=== PATIENT | female | born 2000 ===

== ENCOUNTER 2022-12-16 10:54 | Emergency (ER) | payer BC ==
[2022-12-16 11:15] VITALS: RESP 18
[2022-12-16] MEDS ORDERED: SODIUM CHLORIDE 0.9% 1,000 ML IV STA (11:57)
--- NOTE | 2022-12-16 12:41 | XR ---
EXAMINATION TYPE: XR chest 1V portable DATE OF EXAM: 12/16/2022 12:23 PM COMPARISON: None TECHNIQUE: XR chest 1V portable Portable AP radiograph of the chest. CLINICAL INDICATION:Female, 22 years old with history of chest wall pain; FINDINGS: Lungs/Pleura: There is no evidence of pleural effusion, focal consolidation, or pneumothorax. Pulmonary vascularity: Unremarkable. Heart/mediastinum: Cardiomediastinal silhouette is unremarkable. Musculoskeletal: No acute osseous pathology. IMPRESSION: No acute cardiopulmonary disease/process.
[2022-12-16 12:52] LABS: Basophils % (A) 0 %; Eosinophils # (A) 0.2 k/uL (0-0.7); Eosinophils % (A) 1 %; HCT 37.3 % (34.0-46.0); HGB 12.6 gm/dL (11.4-16.0); Lymphocytes # (A) 1.2 k/uL (1.0-4.8); Lymphocytes % (A) 9 %; MCH 29.5 pg (25.0-35.0); MCHC 33.8 g/dL (31.0-37.0); MCV 87.2 fL (80.0-100.0); Mean Platelet Volume 8.2; Monocytes # (A) 0.7 k/uL (0-1.0); Monocytes % (A) 5 %; Neutrophils # (A) 10.9 k/uL (1.3-7.7); Neutrophils % (A) 84 %; Platelet Count 300 k/uL (150-450); RBC 4.27 m/uL (3.80-5.40); RDW 13.1 % (11.5-15.5); WBC 13.1 k/uL (3.8-10.6)
[2022-12-16 13:50] LABS: African American GFR (CKD) >90 (>60 ml/min/1.73 sqM); Anion Gap 5 mmol/L; Blood Urea Nitrogen 8 mg/dL (7-17); Carbon Dioxide 24 mmol/L (22-30); Chloride 107 mmol/L (98-107); Glucose 82 mg/dL (74-99); Non-African American GFR(CKD) >90 (>60 ml/min/1.73 sqM); Potassium 4.8 mmol/L (3.5-5.1); Sodium 136 mmol/L (137-145)
--- NOTE | 2022-12-16 14:44 | ED ---
General Adult HPI - General Chief complaint: Chest Pain Stated complaint: Chest Pain/Ear Pressure/Headache 16 wks Time Seen by Provider: 12/16/22 11:45 Source: patient, family, RN notes reviewed, old records reviewed Mode of arrival: ambulatory Limitations: language barrier - History of Present Illness Initial comments: Patient is a 22-year-old female who presents emergency Department complaining of chest discomfort, as well as a headache and an ear fullness sensation. Patient is approximately 14-16 weeks . States the chest pain began suddenly while she was lifting heavy objects at work. Patient is Danish-speaking and is using a family member for translation. States the pain is located along her upper sternum and is palpable and worse with movements of her arms. Denies any shortness of breath. Denies any lightheadedness. Endorses a mild headache as well as ear fullness. No sore throat or rhinorrhea. No nausea, vomiting. No abdominal pain. No vaginal bleeding. Is due to follow-up with her EXPLOSIVES ENGINEER tomorrow. His no other acute complaints at this time. Has been taking vitamins. Denies any trauma. Presents for further evaluation. - Related Data Home Medications Medication Instructions Recorded Confirmed No Known Home Medications 12/16/22 12/16/22 Allergies Allergy/AdvReac Type Severity Reaction Status Date / Time No Known Allergies Allergy Verified 12/16/22 12:10 Review of Systems ROS Statement: Those systems with pertinent positive or pertinent negative responses have been documented in the HPI. Review of Systems: CONST: Denies fever EYES: Denies blurry vision ENT: Denies nasal congestion C/V: Endorses chest wall pain RESP: Denies shortness of breath GI: Denies abdominal pain : Denies dysuria SKIN: Denies rash. MSK: Denies joint pain. NEURO: Endorses mild headache ROS Other: All systems not noted in ROS Statement are negative. Past Medical History Past Medical History: No Reported History History of Any Multi-Drug Resistant Organisms: None Reported Past Surgical History: No Surgical Hx Reported Past Psychological History: No Psychological Hx Reported Smoking Status: Never smoker Past Alcohol Use History: None Reported Past Drug Use History: None Reported General Exam - General Exam Comments Initial Comments: General: Appears in no acute distress. HEAD: Normal with no signs of head trauma. EYES: PERRLA, EOMI, conjunctiva normal, no discharge. Pupils are 3 mm and equal bilaterally. ENT: Hearing grossly intact, normal oropharynx. RESPIRATORY: Clear breath sounds bilaterally. No wheezes, rales, or rhonchi. C/V: Regular rate and rhythm. S1 and S2 auscultated, no edema, peripheral pulses 2+ and intact throughout ABD: Abd is soft, nontender, nondistended EXT: Normal range of motion, no obvious deformity. Chest pain reproducible on the superior third of the sternum. Appears to be chest wall pain and musculoskeletal in nature. Worse with movement of the arms. SKIN: No rashes or lesions observed on exposed skin. NEURO: Alert and oriented 4. Limitations: language barrier Course Vital Signs 12/16/22 12/16/22 11:08 14:44 Temperature 98.2 F 98.5 F Pulse Rate 94 88 Respiratory 18 18 Rate Blood Pressure 122/76 105/66 O2 Sat by Pulse 99 100 Oximetry Medical Decision Making - Medical Decision Making Was pt. sent in by a medical professional or institution (, PA, SECRETARY TO BOARD OF COMMISSIONERS, urgent care, hospital, or [facility]...) When possible be specific @ -No Did you speak to anyone other than the patient for history (EMS, parent, family, police, friend...)? What history was obtained from this source @ -Used family member for translation at patient's request. Did you review nursing and triage notes (agree or disagree)? Why? @ -I reviewed and agree with nursing and triage notes Were old charts reviewed (outside hosp., previous admission, EMS record, old EKG, old radiological studies, urgent care reports/EKG's, [facility] records)? Report findings @ -No old charts were reviewed Differential Diagnosis (chest pain, altered mental status, abdominal pain women, abdominal pain men, vaginal bleeding, weakness, fever, dyspnea, syncope, headache, dizziness, GI bleed, back pain, seizure, CVA, palpatations, mental health, musculoskeletal)? @ -Chest wall pain, muscle strain, viral syndrome, dehydration. This list is not all inclusive. EKG interpreted by me (3pts min.). @ -As above X-rays interpreted by me (1pt min.). @ -Chest x-ray reveals no obvious acute cardio pulmonary process, infiltrate. CT interpreted by me (1pt min.). @ -None done U/S interpreted by me (1pt. min.). @ -None done What testing was considered but not performed or refused? (CT, X-rays, U/S, labs)? Why? @ -None What meds were considered but not given or refused? Why? @ -None Did you discuss the management of the patient with other professionals (professionals i.e. , PA, SECRETARY TO BOARD OF COMMISSIONERS, lab, RT, psych nurse, social work coordinator, copy writer, teacher, corporate responsibility officer, vocational case manager)? Give summary @ -No Was smoking cessation discussed for >3mins.? @ -No Was critical care preformed (if so, how long)? @ -No Were there social determinants of health that impacted care today? How? (Homelessness, low income, unemployed, alcoholism, drug addiction, transportation, low edu. Level, literacy, decrease access to med. care, intermediate, rehab)? @ -No Was there de-escalation of care discussed even if they declined (Discuss DNR or withdrawal of care, Hospice)? DNR status @ -No What co-morbidities impacted this encounter? (DM, HTN, Smoking, COPD, CAD, Cancer, CVA, ARF, Chemo, Hep., AIDS, mental health diagnosis, sleep apnea, morbid obesity)? @ -None Was patient admitted / discharged? Hospital course, mention meds given and route, prescriptions, significant lab abnormalities, going to OR and other pertinent info. @ -Based on the patient's presentation and physical exam, patient presents with chest wall pain. Patient also has a nonspecific headache at this time. We will obtain basic labs. She is approximately 16 weeks . Vital signs within acceptable limits. No other acute complaints at this time. She will symptomatically be treated with Tylenol as well as a 1 L fluid bolus. Patient's labs are remarkable for a likely reactive leukocytosis of 13. Remainder of the labs are unremarkable including a negative viral swabs. Chest x-ray unremarkable. EKG within acceptable limits. No evidence of acute ischemia. On reevaluation, patient's symptoms have resolved. She feels improved. We did discuss her workup as well as her diagnosis of chest wall strain. She was in agreement with this plan. She'll be discharged home at this time. She has a EXPLOSIVES ENGINEER tomorrow. Strict return precautions discussed. She can use [id number] analgesic medications for pain. She is expressed understanding and I answered all questions that she had. I instructed the patient to follow up with their PCP in the next 1-3 days. I explained that the patient should return to the emergency department if they experience any worsening symptoms. Strict return precautions were discussed with the patient. The patient expressed understanding of these instructions. I answered all questions that the patient had. The patient was discharged home in good condition with their prescriptions and follow up information. Undiagnosed new problem with uncertain prognosis? @ -No Drug Therapy requiring intensive monitoring for toxicity (Heparin, Nitro, Insulin, Cardizem)? @ -No Were any procedures done? @ -No Diagnosis/symptom? @ -Chest wall pain, muscle strain Acute, or Chronic, or Acute on Chronic? @ -Acute Uncomplicated (without systemic symptoms) or Complicated (systemic symptoms)? @ -Uncomplicated Side effects of treatment? @ -No Exacerbation, Progression, or Severe Exacerbation? @ -No Poses a threat to life or bodily function? How? (Chest pain, USA, IA, pneumonia, PE, COPD, DKA, ARF, appy, cholecystitis, CVA, Diverticulitis, Homicidal, Suicidal, threat to staff... and all critical care pts) @ -No Diagnosis/symptom? @ - Acute, or Chronic, or Acute on Chronic? @ -Acute Uncomplicated (without systemic symptoms) or Complicated (systemic symptoms)? @ -Uncomplicated Side effects of treatment? @ -none Exacerbation, Progression, or Severe Exacerbation] @ -no Poses a threat to life or bodily function? @ -no - Lab Data Result diagrams: 12/16/22 12:43 12/16/22 13:08 Lab Results 12/16/22 12/16/22 12/16/22 Range/Units 12:43 12:43 13:08 WBC 13.1 H (3.8-10.6) k/uL RBC 4.27 (3.80-5.40) m/uL Hgb 12.6 (11.4-16.0) gm/dL Hct 37.3 (34.0-46.0) % MCV 87.2 (80.0-100.0) fL MCH 29.5 (25.0-35.0) pg MCHC 33.8 (31.0-37.0) g/dL RDW 13.1 (11.5-15.5) % Plt Count 300 (150-450) k/uL MPV 8.2 Neutrophils % 84 % Lymphocytes % 9 % Monocytes % 5 % Eosinophils % 1 % Basophils % 0 % Neutrophils # 10.9 H (1.3-7.7) k/uL Lymphocytes # 1.2 (1.0-4.8) k/uL Monocytes # 0.7 (0-1.0) k/uL Eosinophils # 0.2 (0-0.7) k/uL Basophils # 0.0 (0-0.2) k/uL Sodium 136 L (137-145) mmol/L Potassium 4.8 (3.5-5.1) mmol/L Chloride 107 (98-107) mmol/L Carbon Dioxide 24 (22-30) mmol/L Anion Gap 5 mmol/L BUN 8 (7-17) mg/dL Creatinine 0.46 L (0.52-1.04) mg/dL Est GFR (CKD-EPI)AfAm >90 (>60 ml/min/1.73 sqM) Est GFR (CKD-EPI)NonAf >90 (>60 ml/min/1.73 sqM) Glucose 82 (74-99) mg/dL Calcium 8.0 L (8.4-10.2) mg/dL Influenza Type A (PCR) Not Detected (Not Detectd) Influenza Type B (PCR) Not Detected (Not Detectd) RSV (PCR) Not Detected (Not Detectd) SARS-CoV-2 (PCR) Not Detected (Not Detectd) - EKG Data -: EKG Interpreted by Me EKG Comments: 12-lead Electrocardiogram Interpretation Note EKG was reviewed and interpreted by myself. 12-lead ECG performed at 1123 is interpreted by me as revealing normal sinus rhythm at a rate of 94 beats per minute. Early Branch is normal. W[place] interval is 104 ms, QRS duration is 84 ms, QTc is 396 ms. Patient has an isolated T-wave inversion in lead III with no reciprocal changes. There were no acute ST or T wave abnormalities to suggest myocardial ischemia or injury. R wave progression across the precordium was satisfactory. By my interpretation this EKG is non-diagnostic for acute ischemia. Disposition Clinical Impression: Chest wall pain, Muscle strain, Headache Disposition: HOME SELF-CARE Condition: Good Instructions (If sedation given, give patient instructions): Muscle Strain (ED) Is patient prescribed a controlled substance at d/c from ED?: No Referrals: Liz Owens DO [Primary Care Provider] - 1-2 days Time of Disposition: 14:32
[2022-12-16 14:49] VITALS: BP 105/66; PULSE 88; TEMP 98.5
== END 2022-12-16 14:50 | disposition home or self-care (01) ==
LOC: EC 10:54
DX: O26.892 Other specified pregnancy related conditions, second trimester (principal); S29.011A Strain of muscle and tendon of front wall of thorax, initial encounter; R51.9 Headache, unspecified; Z20.822 Contact with and (suspected) exposure to COVID-19; Z3A.16 16 weeks gestation of pregnancy; X58.XXXA Exposure to other specified factors, initial encounter
CPT/HCPCS: 36415; 71045; 80048; 85025; 87636; 93005; 96360; 99285

== ENCOUNTER 2023-05-15 15:37 | Inpatient (IN) | payer BC ==
[2023-05-15] MEDS ORDERED: DINOPROSTONE 10 MG INSERT.ER VAGINAL ONE (15:55)
[2023-05-16] MEDS: LACTATED RINGERS 1,000 ML IV SCH ×3 (01:05→20:11)
[2023-05-16] MEDS ORDERED: OXYTOCIN 10 UNIT/ML 1 ML VIAL IM PRN (01:10)
[2023-05-16] MEDS ORDERED: miSOPROStoL 200 MCG TAB PO PRN (01:10)
[2023-05-16] MEDS ORDERED: CARBOPROST TROMETHAMINE 250 MCG/ML 1 ML AMP IM PRN (01:10)
[2023-05-16] MEDS ORDERED: TERBUTALINE 1 MG/ML VIAL SQ PRN (01:10)
[2023-05-16] MEDS ORDERED: LIDOCAINE 0.5% (PF) 5 MG/ML (50 ML SDV) SQ PRN (01:10)
[2023-05-16] MEDS ORDERED: TRANEXAMIC 1,000 MG/100ML-NACL 1,000 MG in EMPTY BAG 1 BAG IV PRN (01:10)
[2023-05-16] MEDS ORDERED: METHYLERGONOVINE 0.2 MG/ML 1 ML AMP IM PRN (01:10)
[2023-05-16] MEDS ORDERED: NALBUPHINE 10 MG/ML (10 ML MDV) IV PRN (01:11)
[2023-05-16] MEDS ORDERED: OXYTOCIN 30 UNITS/500 ML NS 30 UNIT in SALINE 1 500ML.BAG IV SCH ×2 (01:15→06:45)
[2023-05-16 01:24] LABS: Anisocytosis Slight; Basophils % (A) 0 %; Eosinophils # (A) 0.1 k/uL (0-0.7); Eosinophils % (A) 1 %; HCT 37.8 % (34.0-46.0); HGB 12.4 gm/dL (11.4-16.0); Lymphocytes # (A) 1.8 k/uL (1.0-4.8); Lymphocytes % (A) 13 %; MCH 25.4 pg (25.0-35.0); MCHC 32.8 g/dL (31.0-37.0); MCV 77.4 fL (80.0-100.0); Mean Platelet Volume 8.1; Microcytosis Slight; Monocytes # (A) 0.6 k/uL (0-1.0); Monocytes % (A) 4 %; Neutrophils # (A) 11.3 k/uL (1.3-7.7); Neutrophils % (A) 81 %; Platelet Count 338 k/uL (150-450); RBC 4.88 m/uL (3.80-5.40); RDW 16.1 % (11.5-15.5)
[2023-05-16] MEDS ORDERED: diphenhydrAMINE 25 MG CAP PO PRN (06:38)
[2023-05-16] MEDS ORDERED: diphenhydrAMINE 50 MG/ML 1 ML VIAL IVP PRN ×2 (06:38)
[2023-05-16] MEDS ORDERED: BENZOCAINE/MENTHOL SPRAY 1 GM/SPRAY AEROSOL TOPICAL PRN (06:38)
[2023-05-16] MEDS ORDERED: LANOLIN CREAM 5 GM TUBE TOPICAL PRN (06:38)
[2023-05-16] MEDS ORDERED: HYDROCORTISONE 2.5% RECTAL CREAM 30 GM TUBE RECTAL PRN (06:38)
[2023-05-16] MEDS ORDERED: ZOLPIDEM 5 MG TAB PO PRN (06:38)
[2023-05-16] MEDS ORDERED: ACETAMINOPHEN TAB 325 MG TAB PO PRN (06:38)
[2023-05-16] MEDS ORDERED: SIMETHICONE 80 MG CHEWABLE PO PRN (06:38)
[2023-05-16] MEDS ORDERED: diphenhydrAMINE 50 MG CAP PO PRN (06:38)
[2023-05-16] MEDS ORDERED: IBUPROFEN 600 MG TAB PO PRN (06:38)
--- NOTE | 2023-05-16 06:42 | P.HPOB ---
History of Present Illness H&P Date: 05/15/23 Chief Complaint: induction of labor, GDM 22 year old presents at 39 weeks 4 days for induction of labor due to gestational diabetes. Her cervix is closed, 50, -2 and she is tania irregularly. heart tones 140 with moderate variability and reactive. Review of Systems All systems: negative Constitutional: Denies chills, Denies fever Eyes: denies blurred vision, denies pain Ears, nose, mouth and throat: Denies headache, Denies sore throat Cardiovascular: Denies chest pain, Denies shortness of breath Respiratory: Denies cough Gastrointestinal: Denies abdominal pain, Denies diarrhea, Denies nausea, Denies vomiting Genitourinary: Denies dysuria, Denies hematuria Musculoskeletal: Denies myalgias Integumentary: Denies pruritus, Denies rash Neurological: Denies numbness, Denies weakness Psychiatric: Denies anxiety, Denies depression Endocrine: Denies fatigue, Denies weight change Past Medical History Past Medical History: No Reported History History of Any Multi-Drug Resistant Organisms: None Reported Past Surgical History: No Surgical Hx Reported Past Anesthesia/Blood Transfusion Reactions: No Reported Reaction Past Psychological History: No Psychological Hx Reported Smoking Status: Never smoker Past Alcohol Use History: None Reported Past Drug Use History: None Reported - Past Family History Mother History Unknown: Yes Medications and Allergies Home Medications Medication Instructions Recorded Confirmed Type No Known Home Medications 12/16/22 05/15/23 History Allergies Allergy/AdvReac Type Severity Reaction Status Date / Time No Known Allergies Allergy Verified 12/16/22 12:10 Exam Osteopathic Statement: *. No significant issues noted on an osteopathic structural exam other than those noted in the History and Physical/Consult. Vital Signs Temp Pulse Resp BP Pulse Ox 05/16/23 06:11 130 H 18 140/91 05/15/23 15:53 98.0 F 91 18 141/90 98 Intake and Output 05/15/23 05/15/23 05/16/23 14:59 22:59 06:59 Intake Total 162 Balance 162 Intake: Intake, IV Titration 162 Amount Oxytocin 30 Units/500 ml 162 Ns 30 unit In Saline 1 500ml.bag @ Per Protocol IV .Q0M OLMAN Rx#:[id number] Other: # Voids 3 Weight 74.843 kg Heart: Regular rate and rhythm Lungs: Clear to auscultation bilaterally Abdomen: Soft, nontender Extremities: Negative Homans sign Results Result Diagrams: 05/16/23 01:00 Abnormal Lab Results - Last 24 Hours (Table) 05/16/23 Range/Units 01:00 WBC 14.0 H (3.8-10.6) k/uL MCV 77.4 L (80.0-100.0) fL RDW 16.1 H (11.5-15.5) % Neutrophils # 11.3 H (1.3-7.7) k/uL Assessment and Plan (1) 39 weeks gestation of Current Visit: Yes Status: Acute Code(s): Z3A.39 - 39 WEEKS GESTATION OF SNOMED Code(s): 27115565 (2) Gestational diabetes Current Visit: Yes Status: Acute Code(s): O24.419 - GESTATIONAL DIABETES MELLITUS IN , UNSP CONTROL SNOMED Code(s): 59672057 Plan: 1. induction of labor with cervidil and then amniotomy and pitocin.
--- NOTE | 2023-05-16 06:44 | P.PROBDLV ---
Vaginal Delivery Note - . Vaginal Delivery Note: 22 year old presents at 39 weeks 4 days for induction of labor due to gestational diabetes. Her cervix is closed, 50, -2 and she is tania irregularly. heart tones 140 with moderate variability and reactive. Cervidil was placed and patient became uncomfortable overnight. Cervidil was removed when her cervix changed from fingertip to 8 cm between 1 in the morning and 4 in the morning. Her cervix was completely dilated at 5:18 AM. She pushed, delivered a viable male infant over intact perineum. Head delivered OA, nuchal cord 1 easily reduced, anterior shoulder delivered gentle downward guidance followed by posterior shoulder and rest of body. Nose and mouth bulb suctioned, cord clamped and cut, infant placed on mother's abdomen. Apgars 8, 9, weight 7 lbs. 14 oz. Placenta delivered spontaneously, intact with three- vessel cord at 6 AM. Vagina, cervix, perineum inspected. A 5 cm fourth degree laceration was repaired with 4-0 Vicryl 3-0 Vicryl and 2-0 Vicryl. Estimated blood loss 250 mL mother and baby in stable condition.
[2023-05-16] MEDS: SENNOSIDES-DOCUSATE SODIUM 1 EACH TAB PO SCH ×2 (09:29→20:08)
--- NOTE | 2023-05-17 07:16 | P.DS ---
Providers Date of admission: 05/15/23 15:37 Expected date of discharge: 05/17/23 Attending physician: Liz Owens Primary care physician: Stated None - Discharge Diagnosis(es) (1) 39 weeks gestation of Current Visit: Yes Status: Resolved (2) Gestational diabetes Current Visit: Yes Status: Resolved (3) Normal vaginal delivery Current Visit: Yes Status: Acute (4) Fourth degree laceration of perineum, delivered, current hospitalization Current Visit: Yes Status: Acute Hospital Course: Patient presented for induction of labor. Cervidil was placed and patient delivered just using this. course was uncomplicated. She denies nausea, vomiting, chest pain, short of breath or calf pain. Patient will be discharged home day #1 in stable condition to follow-up with me in 6 weeks. Plan - Discharge Summary New Discharge Prescriptions: New Ibuprofen [Motrin] 600 mg PO Q6HR PRN #30 tab PRN Reason: Mild Pain (Scale 1 To 3) Discharge Medication List Ibuprofen [Motrin] 600 mg PO Q6HR PRN #30 tab 05/17/23 [Rx] Follow up Appointment(s)/Referral(s): Liz Owens DO [Doctor of Osteopathic Medicine] - 07/05/23 10:45 am Discharge Disposition: HOME SELF-CARE
[2023-05-17 08:15] LABS: Anisocytosis Slight; Basophils % (A) 0 %; Eosinophils % (A) 0 %; HCT 28.7 % (34.0-46.0); Lymphocytes # (A) 2.3 k/uL (1.0-4.8); Lymphocytes % (A) 15 %; MCH 25.9 pg (25.0-35.0); MCHC 33.1 g/dL (31.0-37.0); MCV 78.2 fL (80.0-100.0); Mean Platelet Volume 8.1; Microcytosis Slight; Monocytes # (A) 0.5 k/uL (0-1.0); Monocytes % (A) 3 %; Neutrophils # (A) 11.7 k/uL (1.3-7.7); Neutrophils % (A) 80 %; Platelet Count 321 k/uL (150-450); RBC 3.67 m/uL (3.80-5.40); RDW 16.8 % (11.5-15.5); WBC 14.8 k/uL (3.8-10.6)
[2023-05-17 08:17] LABS: HGB 9.5 gm/dL (11.4-16.0)
[2023-05-17 08:53] VITALS: BP 125/79; PULSE 96; RESP 16; TEMP 98.4
== END 2023-05-17 12:45 | disposition home or self-care (01) | DRG 768 ==
LOC: 4FBP 15:37
PROVIDERS: ADMIT Obstetrics & Gynecology; ATTEND Obstetrics & Gynecology
PROC: 10E0XZZ Delivery of Products of Conception, External Approach (ICD-10-PCS; principal; 2023-05-16)
PROC: 0DQP0ZZ Repair Rectum, Open Approach (ICD-10-PCS; 2023-05-16)
PROC: 3E0P7VZ Introduction of Hormone into Female Reproductive, Via Natural or Artificial Opening (ICD-10-PCS; 2023-05-16)
DX: O24.429 Gestational diabetes mellitus in childbirth, unspecified control (principal); Z37.0 Single live birth; O70.3 Fourth degree perineal laceration during delivery; Z3A.39 39 weeks gestation of pregnancy; Z28.310 Unvaccinated for COVID-19
CPT/HCPCS: 85025; 86850; 86900; 86901

== ENCOUNTER 2023-08-05 16:28 | Emergency (ER) | payer BC ==
[2023-08-05 17:26] VITALS: PULSE 79
[2023-08-05 18:48] LABS: Appearance,Urine Clear (Clear); Bilirubin,Urine Negative (Negative); Blood,Urine Trace (Negative); Color,Urine Yellow; Glucose,Urine (UA) Negative (Negative); Ketones,Urine Negative (Negative); Leukocyte Esterase,Urine Large (Negative); Mucus,Urine Few /hpf; Nitrite,Urine Negative (Negative); PH, Urine 5.5 (5.0-8.0); Protein,Urine Trace (Negative); RBC,Urine 12 /hpf (0-5); Specific Gravity,Urine 1.033 (1.001-1.035); Squamous Epithelial Cell,Urine 1 /hpf (0-4); Urobilinogen,Urine <2.0 mg/dL (<2.0); WBC,Urine 55 /hpf (0-5)
--- NOTE | 2023-08-05 18:59 | ED ---
Abdominal Pain HPI - General Chief Complaint: Abdominal Pain Stated Complaint: abd pain, vomitting- sent from urgent care Time Seen by Provider: 08/05/23 18:22 Source: patient, RN notes reviewed, old records reviewed Mode of arrival: ambulatory Limitations: no limitations - History of Present Illness Initial Comments: This is a 22-year-old female to the ER for evaluation today. Patient presents with urgent care for evaluation regarding abdominal pain abdominal pain with active nausea vomiting. Patient has no recent fevers but is still complaining of abdominal pain here in the ER, epigastric abdominal pain with suprapubic abdominal pain. No recent travel history or sick contacts. No heart prior surgical history and denies chance of MD Complaint: abdominal pain -: days(s) Location: RUQ, suprapubic Radiation: RUQ, suprapubic Migration to: suprapubic Severity: moderate Severity scale (1-10): 6 Quality: fullness, sharp Improves With: nothing Worsens With: nothing Associated Symptoms: nausea, vomiting Treatments Prior to Arrival: other (0) - Related Data Previous Rx's Medication Instructions Recorded Ibuprofen [Motrin] 600 mg PO Q6HR PRN #30 tab 05/17/23 Amoxic-Pot Clav 875-125Mg 1 tab PO Q12HR #20 tablet 08/05/23 [Augmentin 875-125] Allergies Allergy/AdvReac Type Severity Reaction Status Date / Time No Known Allergies Allergy Verified 08/05/23 17:02 Review of Systems ROS Statement: Those systems with pertinent positive or pertinent negative responses have been documented in the HPI. ROS Other: All systems not noted in ROS Statement are negative. Past Medical History Past Medical History: No Reported History Additional Past Medical History / Comment(s): hepatitis History of Any Multi-Drug Resistant Organisms: None Reported Past Surgical History: No Surgical Hx Reported Past Anesthesia/Blood Transfusion Reactions: No Reported Reaction Past Psychological History: No Psychological Hx Reported Smoking Status: Never smoker Past Alcohol Use History: None Reported Past Drug Use History: None Reported - Past Family History Mother History Unknown: Yes General Exam Limitations: no limitations General appearance: alert, in no apparent distress Head exam: Present: atraumatic, normocephalic, normal inspection Eye exam: Present: normal appearance, PERRL, EOMI. Absent: scleral icterus, conjunctival injection, periorbital swelling ENT exam: Present: normal exam, mucous membranes moist Neck exam: Present: normal inspection. Absent: tenderness, meningismus, lymphadenopathy Respiratory exam: Present: normal lung sounds bilaterally. Absent: respiratory distress, wheezes, rales, rhonchi, stridor Cardiovascular Exam: Present: regular rate, normal rhythm, normal heart sounds. Absent: systolic murmur, diastolic murmur, rubs, gallop, clicks GI/Abdominal exam: Present: soft, tenderness, normal bowel sounds. Absent: distended, guarding, rebound, rigid Extremities exam: Present: normal inspection, full ROM, normal capillary refill. Absent: tenderness, pedal edema, joint swelling, calf tenderness Back exam: Present: normal inspection Neurological exam: Present: alert, oriented X3, CN II-XII intact Psychiatric exam: Present: normal affect, normal mood Skin exam: Present: warm, dry, intact, normal color. Absent: rash Course Vital Signs 08/05/23 08/05/23 16:54 23:08 Pulse Rate 79 79 Respiratory 18 16 Rate Blood Pressure 104/71 134/72 O2 Sat by Pulse 98 98 Oximetry - Reevaluation(s) Reevaluation #1: Medical records reviewed Reevaluation #2: Patient symptoms are unchanged Reevaluation #3: Patient informed of results and questions answered Reevaluation #4: Was pt. sent in by a medical professional or institution (Dr. PA, VICE ADMIRAL, urgent care, hospital, or [facility]...) When possible be specific @ -no Did you speak to anyone other than the patient for history (EMS, parent, family, police, friend...)? What history was obtained from this source @ -no Did you review nursing and triage notes (agree or disagree)? Why? @ -agree Are old charts reviewed (outside hosp., previous admission, EMS record, old EKG, old radiological studies, urgent care reports/EKG's, [facility] records)? Report findings @ -yes Differential Diagnosis (chest pain, altered mental status, abdominal pain women, abdominal pain men, vaginal bleeding, weakness, fever, dyspnea, syncope, headache, dizziness, GI bleed, back pain, seizure, CVA, palpatations, mental health, musculoskeletal)? @ -prior EKG interpreted by me (3pts min.). @ -no X-rays interpreted by me (1pt min.). @ -no CT interpreted by me (1pt min.). @ -no U/S interpreted by me (1pt. min.). @ -Yes negative for acute disease What testing was considered but not performed or refused? (CT, X-rays, U/S, labs)? Why? @ -none What meds were considered but not given or refused? Why? @ -none Did you discuss the management of the patient with other professionals (professionals i.e. Dr., PA, VICE ADMIRAL, lab, RT, psych nurse, social science instructor, nonprofit manager, teacher, chief digital officer, telehealth case manager)? Give summary @ -no Was smoking cessation discussed for >3mins.? @ -no Was critical care preformed (if so, how long)? @ -no Were there social determinants of health that impacted care today? How? (Homelessness, low income, unemployed, alcoholism, drug addiction, wyatt sportation, low edu. Level, literacy, decrease access to med. care, nursing home, rehab)? @ -none Was there de-escalation of care discussed even if they declined (Discuss DNR or withdrawal of care, Hospice)? DNR status @ -no What co-morbidities impacted this encounter? (DM, HTN, Smoking, COPD, CAD, Cancer, CVA, ARF, Chemo, Hep., AIDS, mental health diagnosis, sleep apnea, morbid obesity)? @ -none Was patient admitted / discharged? Hospital course, mention meds given and route, prescriptions, significant lab abnormalities, going to OR and other pertinent info. @ - 22-year-old female to ER for evaluation abdominal pain abdominal pain with active vomiting and positive urinary tract infection. Patient has elevated gallbladder enzymes, ultrasound gallbladder negative for acute disease and symptoms are improved patient can be discharged home Discharge Undiagnosed new problem with uncertain prognosis? @ -no Drug Therapy requiring intensive monitoring for toxicity (Heparin, Nitro, Insulin, Cardizem)? @ -no Were any procedures done? @ -no Diagnosis/symptom? @ -Abdominal pain, UTI Acute, or Chronic, or Acute on Chronic? @ -Acute Uncomplicated (without systemic symptoms) or Complicated (systemic symptoms)? @ -Complicated Side effects of treatment? @ -no Exacerbation, Progression, or Severe Exacerbation? @ -exacerbation Poses a threat to life or bodily function? How? (Chest pain, USA, ID, pneumonia, PE, COPD, DKA, ARF, appy, cholecystitis, CVA, Diverticulitis, Homicidal, Suicidal, threat to staff... and all critical care pts) @ -no Reevaluation #5: Differential Abdominal Pain Women: Appendicitis, Cholecystitis, diverticulosis, ischemic bowel, pancreatitis, hepatitis, UTI, gastroenteritis, AAA, incarcerated hernia, bowel obstruction, constipation, inflammatory bowel, hepatitis, peptic ulcer disease, splenic infarction, perforated viscus, vulvitis, ovarian torsion, PID, kidney stone, placenta abruption, this is not meant to be an all-inclusive list Medical Decision Making - Medical Decision Making 22-year-old female to ER for evaluation abdominal pain abdominal pain with active vomiting and positive urinary tract infection. Patient has elevated gallbladder enzymes, ultrasound gallbladder negative for acute disease and symptoms are improved patient can be discharged home - Lab Data Result diagrams: 08/05/23 19:18 08/05/23 19:18 Lab Results 08/05/23 08/05/23 08/05/23 Range/Units 18:20 19:18 19:18 WBC 7.1 (3.8-10.6) k/uL RBC 5.12 (3.80-5.40) m/uL Hgb 11.9 (11.4-16.0) gm/dL Hct 37.1 (34.0-46.0) % MCV 72.5 L (80.0-100.0) fL MCH 23.2 L (25.0-35.0) pg MCHC 32.0 (31.0-37.0) g/dL RDW 17.2 H (11.5-15.5) % Plt Count 330 (150-450) k/uL MPV 7.0 Neutrophils % 56 % Lymphocytes % 27 % Monocytes % 5 % Eosinophils % 9 % Basophils % 1 % Neutrophils # 4.0 (1.3-7.7) k/uL Lymphocytes # 1.9 (1.0-4.8) k/uL Monocytes # 0.4 (0-1.0) k/uL Eosinophils # 0.7 (0-0.7) k/uL Basophils # 0.1 (0-0.2) k/uL Hypochromasia Slight Anisocytosis Slight Microcytosis Moderate PT 9.9 L (10.0-12.5) sec INR 0.9 (<1.2) APTT 23.5 (22.0-30.0) sec Sodium (137-145) mmol/L Potassium (3.5-5.1) mmol/L Chloride (98-107) mmol/L Carbon Dioxide (22-30) mmol/L Anion Gap mmol/L BUN (7-17) mg/dL Creatinine (0.52-1.04) mg/dL Est GFR (CKD-EPI)AfAm (>60 ml/min/1.73 sqM) Est GFR (CKD-EPI)NonAf (>60 ml/min/1.73 sqM) Glucose (74-99) mg/dL Calcium (8.4-10.2) mg/dL Phosphorus (2.5-4.5) mg/dL Magnesium (1.6-2.3) mg/dL Total Bilirubin (0.2-1.3) mg/dL AST (14-36) U/L ALT (4-34) U/L Alkaline Phosphatase (38-126) U/L Total Protein (6.3-8.2) g/dL Albumin (3.5-5.0) g/dL Amylase (30-110) U/L Lipase (23-300) U/L Urine Color Yellow Urine Appearance Clear (Clear) Urine pH 5.5 (5.0-8.0) Ur Specific [place] 1.033 (1.001-1.035) Urine Protein Trace H (Negative) Urine Glucose (UA) Negative (Negative) Urine Ketones Negative (Negative) Urine Blood Trace H (Negative) Urine Nitrite Negative (Negative) Urine Bilirubin Negative (Negative) Urine Urobilinogen <2.0 (<2.0) mg/dL Ur Leukocyte Esterase Large H (Negative) Urine RBC 12 H (0-5) /hpf Urine WBC 55 H (0-5) /hpf Ur Squamous Epith Cells 1 (0-4) /hpf Urine Mucus Few H (None) /hpf 08/05/23 Range/Units 19:18 WBC (3.8-10.6) k/uL RBC (3.80-5.40) m/uL Hgb (11.4-16.0) gm/dL Hct (34.0-46.0) % MCV (80.0-100.0) fL MCH (25.0-35.0) pg MCHC (31.0-37.0) g/dL RDW (11.5-15.5) % Plt Count (150-450) k/uL MPV Neutrophils % % Lymphocytes % % Monocytes % % Eosinophils % % Basophils % % Neutrophils # (1.3-7.7) k/uL Lymphocytes # (1.0-4.8) k/uL Monocytes # (0-1.0) k/uL Eosinophils # (0-0.7) k/uL Basophils # (0-0.2) k/uL Hypochromasia Anisocytosis Microcytosis PT (10.0-12.5) sec INR (<1.2) APTT (22.0-30.0) sec Sodium 142 (137-145) mmol/L Potassium 3.7 (3.5-5.1) mmol/L Chloride 109 H (98-107) mmol/L Carbon Dioxide 24 (22-30) mmol/L Anion Gap 9 mmol/L BUN 14 (7-17) mg/dL Creatinine 0.48 L (0.52-1.04) mg/dL Est GFR (CKD-EPI)AfAm >90 (>60 ml/min/1.73 sqM) Est GFR (CKD-EPI)NonAf >90 (>60 ml/min/1.73 sqM) Glucose 110 H (74-99) mg/dL Calcium 9.5 (8.4-10.2) mg/dL Phosphorus 4.7 H (2.5-4.5) mg/dL Magnesium 1.9 (1.6-2.3) mg/dL Total Bilirubin 0.8 (0.2-1.3) mg/dL AST 73 H (14-36) U/L ALT 209 H (4-34) U/L Alkaline Phosphatase 294 H (38-126) U/L Total Protein 8.0 (6.3-8.2) g/dL Albumin 4.6 (3.5-5.0) g/dL Amylase 73 (30-110) U/L Lipase 62 (23-300) U/L Urine Color Urine Appearance (Clear) Urine pH (5.0-8.0) Ur Specific [place] (1.001-1.035) Urine Protein (Negative) Urine Glucose (UA) (Negative) Urine Ketones (Negative) Urine Blood (Negative) Urine Nitrite (Negative) Urine Bilirubin (Negative) Urine Urobilinogen (<2.0) mg/dL Ur Leukocyte Esterase (Negative) Urine RBC (0-5) /hpf Urine WBC (0-5) /hpf Ur Squamous Epith Cells (0-4) /hpf Urine Mucus (None) /hpf - Radiology Data Radiology results: report reviewed (Ultrasound gallbladder negative for acute disease), image reviewed Disposition Clinical Impression: UTI (urinary tract infection), Abdominal pain, Abdominal colic Disposition: HOME SELF-CARE Condition: Good Instructions (If sedation given, give patient instructions): Urinary Tract Infection in Women (ED) Prescriptions: Amoxic-Pot Clav 875-125Mg [Augmentin 875-125] 1 tab PO Q12HR #20 tablet Is patient prescribed a controlled substance at d/c from ED?: No Referrals: None,Stated [Primary Care Provider] - 1-2 days Time of Disposition: 21:30
[2023-08-05 19:48] LABS: Anisocytosis Slight; Basophils # (A) 0.1 k/uL (0-0.2); Basophils % (A) 1 %; Eosinophils # (A) 0.7 k/uL (0-0.7); Eosinophils % (A) 9 %; HCT 37.1 % (34.0-46.0); HGB 11.9 gm/dL (11.4-16.0); Hypochromasia Slight; Lymphocytes # (A) 1.9 k/uL (1.0-4.8); Lymphocytes % (A) 27 %; MCH 23.2 pg (25.0-35.0); MCV 72.5 fL (80.0-100.0); Microcytosis Moderate; Monocytes # (A) 0.4 k/uL (0-1.0); Monocytes % (A) 5 %; Neutrophils % (A) 56 %; Platelet Count 330 k/uL (150-450); RBC 5.12 m/uL (3.80-5.40); RDW 17.2 % (11.5-15.5); WBC 7.1 k/uL (3.8-10.6)
[2023-08-05 19:56] LABS: INR 0.9 (<1.2); Partial Thromboplastin Time 23.5 sec (22.0-30.0); Prothrombin Time 9.9 sec (10.0-12.5)
[2023-08-05 20:02] LABS: Albumin 4.6 g/dL (3.5-5.0); Amylase 73 U/L (30-110); Carbon Dioxide 24 mmol/L (22-30)
[2023-08-05] MEDS: SODIUM CHLORIDE 0.9% 1,000 ML IV STA (20:16)
[2023-08-05 20:18] LABS: ALT 209 U/L (4-34); AST 73 U/L (14-36); African American GFR (CKD) >90 (>60 ml/min/1.73 sqM); Alkaline Phosphatase 294 U/L (38-126); Anion Gap 9 mmol/L; Blood Urea Nitrogen 14 mg/dL (7-17); Calcium 9.5 mg/dL (8.4-10.2); Chloride 109 mmol/L (98-107); Glucose 110 mg/dL (74-99); Lipase 62 U/L (23-300); Magnesium 1.9 mg/dL (1.6-2.3); Non-African American GFR(CKD) >90 (>60 ml/min/1.73 sqM); Phosphorus 4.7 mg/dL (2.5-4.5); Potassium 3.7 mmol/L (3.5-5.1); Sodium 142 mmol/L (137-145); Total Bilirubin 0.8 mg/dL (0.2-1.3)
--- NOTE | 2023-08-05 21:26 | US ---
EXAMINATION TYPE: US gallbladder DATE OF EXAM: 08/05/2023 COMPARISON: NONE CLINICAL INDICATION: Female, 22 years old with history of pain; Abdominal pain TECHNIQUE: Multiple sonographic images of the right upper quadrant are obtained. FINDINGS: EXAM MEASUREMENTS: Liver Length: 17.2 cm Gallbladder Wall: 0.3 cm CBD: 0.5 cm Right Kidney: 10.0 x 3.5 x 4.8 cm Pancreas: Tail obscured by overlying bowel gas Liver: Parenchyma appears wnl Gallbladder: multiple stones Evidence for sonographic Tidwell's sign: no CBD: appears wnl Right Kidney: no evidence of hydronephrosis or mass IMPRESSION: Mildly prominent liver without focal abnormality. Cholelithiasis.
[2023-08-05] MEDS: AMOXIC-POT CLAV 875MG STARTER PACK 2 TAB BTL PO STA (21:50)
[2023-08-05] MEDS: AMOXIC-POT CLAV 875-125MG 1 EACH TAB PO STA (21:50)
[2023-08-05 23:25] VITALS: BP 134/72; RESP 16
== END 2023-08-05 23:08 | disposition home or self-care (01) ==
LOC: EC 16:28
DX: N39.0 Urinary tract infection, site not specified (principal); K80.20 Calculus of gallbladder without cholecystitis without obstruction
CPT/HCPCS: 36415; 80053; 82150; 83690; 83735; 84100; 85025; 85610; 85730; 81001; 76705; 99284; 96365; 96361; J0696